=== PATIENT | male | born 1990 | race Caucasian/White ===

== ENCOUNTER → 2019-07-06 | Outpatient (CLI) | payer MEDICAID ==
[~2019-07-06] MED LIST: NEUR600T OR
== END ==
LOC: M OUTALCOH 08:16
PROVIDERS: ATTEND Psychiatry & Neurology Psychiatry
DX: Z03.89 Encounter for observation for other suspected diseases and conditions ruled out (principal)

== ENCOUNTER 2019-07-14 07:50 | Outpatient (RCR) | payer SELFPAY | END 2019-08-04 | LOC: M OUTALCOH 07:50 | PROVIDERS: ATTEND Psychiatry & Neurology Psychiatry | DX: Z03.89 Encounter for observation for other suspected diseases and conditions ruled out (principal); F17.200 Nicotine dependence, unspecified, uncomplicated ==

== ENCOUNTER 2024-02-15 18:09 | Emergency (ER) | payer MEDICARE, SELFPAY ==
[~2024-02-15] VITALS: Ht 193 cm; Wt 93.0 kg
[2024-02-15 18:54] LABS: BASO # 0.1 10^3/uL (0.0-0.2); BASO % 0.4 % (0.0-1.0); EOS # 0.2 10^3/uL (0.0-0.5); EOS % 1.3 % (0.0-3.0); HEMATOCRIT 49.1 % (42.0-52.0); HEMOGLOBIN 16.2 g/dl (13.5-17.5); LYMPH % 8.9 % (24.0-44.0); MEAN CORPUSCULAR HEMOGLOBIN 31.6 pg (27.0-33.0); MEAN CORPUSCULAR VOLUME 95.7 fl (80.0-96.0); MONO # 0.4 10^3/uL (0.0-0.8); MONO % 3.7 % (2.0-8.0); NEUTROPHILS % 85.4 % (36.0-66.0); PLATELET COUNT, AUTOMATED 195 10^3/uL (150-450); RED BLOOD COUNT 5.13 10^6/uL (4.30-6.10); WHITE BLOOD COUNT 11.7 10^3/uL (4.0-10.0)
[2024-02-15 19:24] LABS: ALBUMIN 4.1 G/DL (3.2-5.2); BILIRUBIN,DIRECT 0.1 MG/DL (<0.4); BILIRUBIN,TOTAL 0.4 MG/DL (0.3-1.2); TOTAL PROTEIN 7.2 G/DL (5.7-8.2)
[2024-02-15] MEDS ORDERED: ISOVUE-370 76% 100ML VIAL As Ordered ONE (20:27)
[2024-02-15] MEDS: NS 1,000 ML IV ONE (22:27)
[2024-02-15] MEDS: TAMSULOSIN 0.4 MG CAP PO ONE (23:03)
[2024-02-15] MEDS: KETOROLAC 30 MG/ML 1ML VIAL IV ONE (23:04)
[2024-02-15] MEDS ORDERED: KETO10TAB PO (23:50)
[2024-02-15] MEDS ORDERED: FLOM0.4C39 PO (23:50)
[2024-02-16 00:26] VITALS: BP 117/72; TEMP 98.2; O2SAT 97
== END 2024-02-16 00:12 | disposition home or self-care (01) ==
LOC: M ED 18:09
DX: N20.1 Calculus of ureter (principal); K21.9 Gastro-esophageal reflux disease without esophagitis; F17.210 Nicotine dependence, cigarettes, uncomplicated; F12.10 Cannabis abuse, uncomplicated; F10.10 Alcohol abuse, uncomplicated; Z79.2 Long term (current) use of antibiotics; Z79.899 Other long term (current) drug therapy
CPT/HCPCS: 74177; 80047; 80076; 81001; 83690; 85025; 96361; 96374; 99284; J1885; Q9967